=== PATIENT | male | born 1960 | race Caucasian/White ===

== ENCOUNTER 2019-07-17 13:36 | Inpatient (IN) ==
[2019-07-17] MEDS ORDERED: Isovue-370 500 ML BOTTLE IVP ONE (13:44)
[2019-07-17 14:18] LABS: Activated Partial Thrombo Time 29.2 Seconds (26.0-36.0); INR 1.1; Prothrombin Time 12.2 Seconds (9.4-12.1)
[2019-07-17 14:21] LABS: Hematocrit 51.8 % (37.5-50.1); Mean Corpuscular HGB Conc 32.8 g/dL (31.6-35.5); Mean Corpuscular Hemoglobin 25.7 pg (28.0-33.3); Mean Corpuscular Volume 78.2 fL (83.0-100.0); Mean Platelet Volume 10.2 fL (9.4-12.4); Platelet Count 245 K/mcL (140-400); Red Blood Count 6.62 M/mcL (4.19-5.50); Red Cell Distribution Width 15.1 % (11.5-14.5); White Blood Count 6.3 K/mcL (4.3-11.1)
[2019-07-17 14:32] LABS: BUN/Creatinine Ratio 13 (6-26); Blood Urea Nitrogen 12 mg/dL (6-20); Calcium 9.8 mg/dL (8.6-10.3); Carbon Dioxide 28 mEq/L (23-29); Chloride 99 mEq/L (98-107); Glucose 91 mg/dL (70-105); Osmolality,Calculated 283 (280-300); Potassium 4.3 mEq/L (3.5-5.1); Sodium 137 mEq/L (136-145); eGFR For African Americans > 60 (> 60); eGFR For Non-African Americans > 60 (> 60)
[2019-07-17 14:33] LABS: Troponin I < 0.03 ng/mL (< 0.04)
[2019-07-17] MEDS ORDERED: Aspirin 325 MG TABLET PO ONE (16:07)
[2019-07-17] MEDS ORDERED: Ondansetron 4 MG/2 ML VIAL IVP PRN (16:16)
[2019-07-17] MEDS ORDERED: Naloxone 0.4 MG/ML INJ IVP PRN (16:16)
[2019-07-17] MEDS ORDERED: Acetaminophen/Aspirin/Caffeine TABLET PO PRN (16:57)
[2019-07-17] MEDS ORDERED: *HR* Heparin 5,000 UNIT/ML VIAL SQ SCH (18:00)
[2019-07-17] MEDS ORDERED: Acetaminophen/Butalbital/CaffeineTABLET PO ONE (19:53)
[2019-07-17] MEDS ORDERED: SUMAtriptan succinate 25 MG TABLET PO ONE (21:33)
[2019-07-17] MEDS: rOPINIRole 1 MG TABLET PO SCH (23:27)
[2019-07-17] MEDS: Cholecalciferol (D-3) 1,000 UNIT (25MCG) TABLET PO SCH (23:28)
[2019-07-17] MEDS: hydrOXYzine pamoate 25 MG CAPSULE PO SCH (23:29)
[2019-07-18] MEDS ORDERED: Ketorolac 30 MG/ML VIAL IVP ONE ×2 (01:47→19:45)
[2019-07-18 04:26] LABS: Basophils # 0.1 K/mcL (0.0-0.2); Basophils % 1.2 %; Eosinophils # 0.2 K/mcL (0.0-0.6); Eosinophils % 2.5 %; Hematocrit 50.8 % (37.5-50.1); Hemoglobin 16.8 g/dL (12.9-16.9); Immature Granulocytes % 0.4 % (0-4); Lymphocytes % 26.4 %; Mean Corpuscular HGB Conc 33.1 g/dL (31.6-35.5); Mean Corpuscular Volume 78.5 fL (83.0-100.0); Mean Platelet Volume 10.5 fL (9.4-12.4); Monocytes # 0.8 K/mcL (0.0-1.3); Monocytes % 9.9 %; Neutrophils # 4.6 K/mcL (1.6-8.9); Platelet Count 219 K/mcL (140-400); Red Blood Count 6.47 M/mcL (4.19-5.50); Red Cell Distribution Width 15.3 % (11.5-14.5); Segmented Neutrophils % 59.6 %; White Blood Count 7.7 K/mcL (4.3-11.1)
[2019-07-18 04:49] LABS: BUN/Creatinine Ratio 15 (6-26); Blood Urea Nitrogen 15 mg/dL (6-20); Calcium 9.6 mg/dL (8.6-10.3); Carbon Dioxide 28 mEq/L (23-29); Chloride 99 mEq/L (98-107); Cholesterol 231 mg/dL (< 200); Glucose 107 mg/dL (70-105); HDL Cholesterol 46 mg/dL (40-59); LDL Cholesterol,Calculated 143 mg/dL (0-99); Osmolality,Calculated 287 (280-300); Potassium 3.6 mEq/L (3.5-5.1); Sodium 138 mEq/L (136-145); Triglycerides 209 mg/dL (< 150); eGFR For African Americans > 60 (> 60); eGFR For Non-African Americans > 60 (> 60)
[2019-07-18] MEDS: Prochlorperazine 10 MG/2 ML VIAL IVP PRN ×2 (05:41→21:20)
[2019-07-18] MEDS: hydrOXYzine pamoate 25 MG CAPSULE PO SCH ×3 (08:14→20:23)
[2019-07-18] MEDS: Venlafaxine XR (24 HR) 150 MG CAP.ER.24H PO SCH (08:14)
[2019-07-18] MEDS: Cholecalciferol (D-3) 1,000 UNIT (25MCG) TABLET PO SCH (08:14)
[2019-07-18] MEDS ORDERED: Gadolinium Contrast Agent (WT Based) IV PRN (08:23)
[2019-07-18] MEDS ORDERED: SUMAtriptan 6 MG/0.5 ML SQ ONE (08:23)
[2019-07-18] MEDS ORDERED: *HR* Promethazine 25 MG/ML VIAL IVP ONE (08:24)
[2019-07-18 08:43] LABS: Estimated Average Glucose 126 mg/dl
[2019-07-18] MEDS ORDERED: diazePAM 10 MG/2 ML SYRINGE IVP STA (08:57)
[2019-07-18] MEDS ORDERED: tiZANidine 4 MG TABLET PO PRN (09:00)
[2019-07-18] MEDS ORDERED: Aspirin Enteric Coated 81 MG Tablet PO SCH (09:00)
[2019-07-18] MEDS ORDERED: methylPREDNISolone 125 MG/2 ML VIAL IVP ONE (09:07)
[2019-07-18] MEDS ORDERED: lisinopriL 5 MG TABLET PO SCH (13:15)
[2019-07-18 14:27] LABS: Amphetamine Screen,Urine Negative ng/mL (Cutoff=1000); Barbiturate Screen,Urine Positive ng/mL (Cutoff=200); Benzodiazepines Screen,Urine Positive ng/mL (Cutoff=200); Cannabinoid Screen,Urine Negative ng/mL (Cutoff = 50); Cocaine Screen,Urine Negative ng/mL (Cutoff= 300); Opiate Screen,Urine Negative ng/mL (Cutoff=300); Phencyclidine Screen,Urine Negative ng/mL (Cutoff=25)
[2019-07-18] MEDS: Pregabalin 75 MG CAPSULE PO SCH ×2 (14:37→20:23)
[2019-07-18] MEDS ORDERED: lisinopriL 5 MG TABLET PO ONE (14:48)
[2019-07-18] MEDS ORDERED: *HR* Rivaroxaban 10 MG TABLET PO SCH (17:00)
[2019-07-18] MEDS ORDERED: Prochlorperazine 10 MG/2 ML VIAL IVP PRN (19:44)
[2019-07-18] MEDS ORDERED: *HR* LORazepam 2 MG/ML VIAL IVP ONE (19:45)
[2019-07-18] MEDS: rOPINIRole 1 MG TABLET PO SCH (20:21)
[2019-07-19 02:42] LABS: Basophils % 0.1 %; Hematocrit 45.2 % (37.5-50.1); Immature Granulocytes % 0.4 % (0-4); Lymphocytes # 1.3 K/mcL (0.6-4.6); Lymphocytes % 14.8 %; Mean Corpuscular HGB Conc 33.4 g/dL (31.6-35.5); Mean Corpuscular Hemoglobin 25.7 pg (28.0-33.3); Mean Corpuscular Volume 76.9 fL (83.0-100.0); Mean Platelet Volume 10.6 fL (9.4-12.4); Monocytes # 0.5 K/mcL (0.0-1.3); Monocytes % 5.6 %; Neutrophils # 7.1 K/mcL (1.6-8.9); Platelet Count 239 K/mcL (140-400); Red Blood Count 5.88 M/mcL (4.19-5.50); Red Cell Distribution Width 14.4 % (11.5-14.5); Segmented Neutrophils % 79.1 %; White Blood Count 8.9 K/mcL (4.3-11.1)
[2019-07-19 02:44] LABS: Hemoglobin 15.1 g/dL (12.9-16.9)
[2019-07-19] MEDS ORDERED: Prochlorperazine 10 MG/2 ML VIAL IVP PRN (03:14)
[2019-07-19] MEDS ORDERED: Ketorolac 30 MG/ML VIAL IVP ONE ×2 (03:14→09:25)
[2019-07-19] MEDS: Venlafaxine XR (24 HR) 150 MG CAP.ER.24H PO SCH (07:46)
[2019-07-19] MEDS: Cholecalciferol (D-3) 1,000 UNIT (25MCG) TABLET PO SCH (07:46)
[2019-07-19] MEDS: hydrOXYzine pamoate 25 MG CAPSULE PO SCH (07:47)
[2019-07-19] MEDS: Pregabalin 75 MG CAPSULE PO SCH (07:47)
[2019-07-19] MEDS ORDERED: lisinopriL 10 MG TABLET PO SCH (09:00)
[2019-07-19] MEDS ORDERED: MethylPREDNISolone 40 MG/ML VIAL IVP ONE (09:25)
[2019-07-19 10:28] VITALS: BP 131/68
== END 2019-07-19 13:49 | disposition home or self-care (01) | DRG 123 ==
LOC: 3BNU 13:36 → EMEROOARM 13:36 → SUATTDRO 16:46 → 3BNU 17:40
PROVIDERS: ADMIT Internal Medicine; ATTEND Internal Medicine